=== PATIENT | male | born 1945 | race Caucasian/White ===

== ENCOUNTER 2023-01-23 16:43 | Observation (INO) | payer MEDICARE, OTHER ==
[~2023-01-23] VITALS: Ht 180.3 cm; Wt 86.0 kg
--- OUTSIDE RECORDS SUMMARY | ~2023-01-23 | XMS | Continuity of Care Document ---
Demographics + + + | Address | [address] | | | [place] [address] | + + + | Preferred Language | Unknown | + + + | Marital Status | | + + + | Muslim Affiliation | Unknown | + + + | Race | White | + + + | Ethnic Group | Unknown | + + + Author + + + | Author | [facility] | + + + | Organization | [facility] | + + + | Address | [address] | | | [place] [address] | + + + | Phone | | + + + Care Team Providers + + + + | Care Seafood Preparer Name | Role | Phone | + + + + Unavailable | Unavailable | + + + + Allergies No information. Encounters No information. Functional Status No information. Immunizations No information. Medications No information. Problems + + + + | date | description | facility | + + + + | 2022-11-16 09:08 | CHEST PAIN, UNSPECIFIED | [facility] | + + + + Procedures No information. Results/Labs No information. Social History No information. Vital Signs No information."
--- OUTSIDE RECORDS SUMMARY | ~2023-01-23 | XMS | Continuity of Care Document ---
Demographics + + + | Address | [address] | | | [place] [address] | + + + | Preferred Language | Unknown | + + + | Marital Status | | + + + | Protestant Affiliation | Unknown | + + + | Race | White | + + + | Ethnic Group | Unknown | + + + Author + + + | Author | [facility] | + + + | Organization | [facility] | + + + | Address | [address] | | | [place] [address] | + + + | Phone | | + + + Care Team Providers + + + + | Care Post Acute Care Nurse Practitioner Name | Role | Phone | + [...]
--- OUTSIDE RECORDS SUMMARY | ~2023-01-23 | XMS | Continuity of Care Document ---
Demographics + + + | Address | [address] | | | [place] [address] | + + + | Preferred Language | Unknown | + + + | Marital Status | | + + + | Caodaism Affiliation | Unknown | + + + | Race | White | + + + | Ethnic Group | Unknown | + + + Author + + + | Author | [facility] | + + + | Organization | [facility] | + + + | Address | [address] | | | [place] [address] | + + + | Phone | | + + + Care Team Providers + + + + | Care Terrazzo Polisher Name | Role | Phone | + [...]
[2023-01-23] MEDS ORDERED: ENALAPRIL MALEA20 MG PO (17:03)
[2023-01-23] MEDS ORDERED: FENOFIBRATE160 MG PO (17:03)
[2023-01-23] MEDS ORDERED: AMLODIPINE BESYL5 MG PO (17:03)
[2023-01-23] MEDS ORDERED: ELIQUIS5 MG PO (17:03)
[2023-01-23] MEDS ORDERED: GLIPIZIDE ER10 MG PO (17:04)
[2023-01-23] MEDS ORDERED: METFORMIN HCL1000 MG PO (17:04)
[2023-01-23] MEDS ORDERED: OZEMPIC1 MG/0.71 SQ (17:04)
[2023-01-23] MEDS ORDERED: LEVOTHYROXINE50 MCG PO (17:04)
[2023-01-23 17:15] LABS: BASOPHILS 0.5 % (0-2); EOSINOPHILS 0.1 % (0-6); HEMATOCRIT 38.6 % (35.0-50.0); HEMOGLOBIN 12.7 g/dL (12.0-18.0); LYMPHOCYTES 9.7 % (24-44); MCH 28.5 (27-36); MCV 86.2 fl (81-99); MONOCYTES 5.3 % (0-12); NEUTROPHILS 84.4 % (39-80); PLATELET COUNT 149 K/uL (140-440); RBC 4.48 M/ul (4.3-5.7); RDW 14.2 (10.5-15.0)
[2023-01-23 17:38] LABS: ALBUMIN 3.9 g/dL (3.4-5.0); ALBUMIN/GLOBULIN RATIO 1.08 (1.1-2.4); ANION GAP 17.2 (7-21); BILIRUBIN, TOTAL 0.9 ng/dL (0.2-1.0); BUN/CREATININE RATIO 16.39 (6.0-28.6); CALCIUM 9.9 mg/dL (8.5-10.1); CREATININE, SERUM 1.22 mg/dL (0.70-1.30); MAGNESIUM 1.5 mg/dL (1.8-2.4); POTASSIUM 4.2 mmol/L (3.5-5.1); PROTEIN, TOTAL 7.5 g/dL (6.4-8.2)
[2023-01-23 17:39] LABS: LACTIC ACID, BLOOD 3.1 mmol/L (0.4-2.0)
[2023-01-23 17:53] LABS: BILIRUBIN, URINE NEGATIVE (negative); BLOOD/HGB, URINE NEGATIVE (Negative); KETONE, URINE NEGATIVE (Negative); LEUK ESTERASE, URINE NEGATIVE (negative); NITRITE, URINE NEGATIVE (negative)
[2023-01-23 19:04] LABS: INFLUENZA B NAA NEGATIVE (NEGATIVE); RESPIRATORY SYNCYTIAL VIR NAA NEGATIVE (NEGATIVE)
[2023-01-23 20:47] VITALS: BP 108/74
--- NOTE | 2023-01-23 21:00 | NUR ---
picked up pt from ED, family with pt. Assesed and settled in bed.
--- NOTE | 2023-01-23 21:29 | NUR ---
Notified Dr. Russell regarding pt elevated Temp and lactic acid. Got orders for repeat lactic.
[2023-01-23 23:52] VITALS: BP 127/65
--- NOTE | 2023-01-24 | NUR ---
notified DR. Russell regarding elevated lactic 3.3. Got orders for 1 Liter bolus. Pt has no complains or distress.
[2023-01-24 01:25] VITALS: BP 114/50
[2023-01-24 05:50] LABS: BASOPHILS 0.2 % (0-2); HEMATOCRIT 34.3 % (35.0-50.0); HEMOGLOBIN 11.4 g/dL (12.0-18.0); LYMPHOCYTES 7.9 % (24-44); MCHC 33.2 g/dl (30-36); MCV 87.2 fl (81-99); MONOCYTES 5.9 % (0-12); PLATELET COUNT 107 K/uL (140-440); RBC 3.94 M/ul (4.3-5.7)
[2023-01-24 05:56] VITALS: BP 119/56
[2023-01-24 06:06] LABS: ALBUMIN/GLOBULIN RATIO 0.94 (1.1-2.4); ANION GAP 10.6 (7-21); BILIRUBIN, TOTAL 0.7 ng/dL (0.2-1.0); BUN/CREATININE RATIO 16.51 (6.0-28.6); CALCIUM 8.8 mg/dL (8.5-10.1); CREATININE, SERUM 1.09 mg/dL (0.70-1.30); MAGNESIUM 1.9 mg/dL (1.8-2.4); PHOSPHORUS, INORGANIC 2.9 mg/dL (2.5-4.9); POTASSIUM 3.6 mmol/L (3.5-5.1); PROTEIN, TOTAL 6.2 g/dL (6.4-8.2)
--- NOTE | 2023-01-24 06:17 | NUR ---
Pt slept well overnight. Lactic improved. Voiding adequetely. Feels better however he has fear of drinking water due to vomiting yesterday at home.
--- NOTE | 2023-01-24 07:17 | NUR ---
REPORT RECEIVED FROM SAMIA MURRAY. PT AWAKE AND ALERT, CONTRIBUTES TO REPORT. PT REPORTS 0/10 PAIN AND DENIES NAUSEA AT THIS TIME. NEW IV FLUIDS HUNG. PT DENIES ADDITIONAL REQUESTS OR COMPLAINTS. CALL LIGHT WITHIN REACH. BED RAILS UP. BED ALARM ON.
--- NOTE | 2023-01-24 07:35 | NUR ---
GENERAL ADMINISTRATOR REPORTS PT BEDSIDE BS 59, PT GIVEN 4OZ APPLE JUICE, CRACKERS AND PEANUT BUTTER. PT SITTING UP IN BED, ALERT AND ORIENTED, ASYMPTOMATIC AT THIS TIME. WILL RECHECK IN 15 MINUTES PER PROTOCOL.
--- NOTE | 2023-01-24 07:53 | NUR ---
REPEAT BEDSIDE BS 67, PT CONTINUES TO BE ASYMPTOMATIC. GIVEN CLEAR ENSURE AND GRANOLA BAR. WILL RECHECK PER PROTOCOL.
--- NOTE | 2023-01-24 08:14 | NUR ---
BEDSIDE BS 95. WILL RECHECK PER PROTOCOL UNTIL GREATER THAN 100.
--- NOTE | 2023-01-24 08:32 | NUR ---
BEDSIDE BS 123
--- NOTE | 2023-01-24 08:42 | NUR ---
MORNING ASSESSMENT AND MEDICAITON DUE. PT RESTING IN BED EATING BREAKFAST. PT DECLINES TIME UP TO CHAIR. PT DENIES PAIN AND NAUSEA. PT ALERT AND OREINTED TO ALL. PT TOLERATING REGULAR DIET AT THIS TIME WITH NO NASUEA SEEN. PT DENIES ABDOMINAL OR FLANK PAIN. PT ALERT AND OREITNED TO ALL. LUNG SOUNDS CLEAR. HEART TONES REGULAR. ABDOMEN SOFT AND NON TENDER. WOUDN TO LATERAL LEFT FOOT HAS ALLEVYN DRESSING IN PLACE. DIME SIZE RED DRAINAGE SEEN ON DRESSING. DRESSING LEFT IN PLACE AT THIS TIME. MEDICATIONS GIVEN. PTS AT BEDSIDE, UPDATED ON PLAN OF CARE AND STATES HER QUESTIONS HAVE BEEN ANSWERED. NO ADDITIONAL REQUESTS OR COMPLAINTS AT THIS TIME. CALL LIGHT WITHIN REACH.B ED RAILS UP.
[2023-01-24] MEDS ORDERED: HYDROCHLOROTHIA25 MG PO (08:56)
[2023-01-24] MEDS ORDERED: LATANOPROST2.5 ML OU (08:59)
[2023-01-24] MEDS ORDERED: LANTUS SOL100 UNIT/1 SUB-Q (09:00)
[2023-01-24] MEDS ORDERED: ATORVASTATIN CA40 MG PO (09:00)
[2023-01-24 09:39] VITALS: BP 116/53
--- NOTE | 2023-01-24 09:39 | NUR ---
PT RESTING IN BED. VITALS AND IS AND OS COMPLETE. PT DENIES RESTROOM NEEDS. ICE WATER REFILLED. NO NEEDS. CALL LIGHT WITHIN REACH
[2023-01-24] MEDS ORDERED: ONE DAILY MULT PO (09:50)
[2023-01-24] MEDS ORDERED: FISH OIL 1,0001 EAC6 PO (09:50)
[2023-01-24] MEDS ORDERED: TIMOLOL MALEATE5 M2 OU (09:56)
--- NOTE | 2023-01-24 09:56 | NUR ---
DR FOX TO BEDSIDE TO ROUND ON PT. PT UPDATED ON PLAN OF CARE AND STATES HIS QUESTIONS HAVE BEEN ANSWERED. PT DENIES PAIN AND NAUSEA. QUESTIONS ASKED AND ANSWERED. PT DENIES ADDITIONAL REQUESTS OR COMPLAINTS. CALL LIGHT WITHIN REACH. BED RAILS UP.
--- NOTE | 2023-01-24 09:57 | NUR ---
MED REC COMPLETE
--- NOTE | 2023-01-24 10:20 | NUR ---
Spoke with pt and his . He states they live in [place] in a 1 story home with 2 steps. He denies issues getting in or out of his home. He drives, corrects him and states he was not able to drive yesterday.Pt does not use any DME. He states he is active. He sees Dr. Nieves for a foot wound. Pt state he he is active and denies needs. Pt plans on dc to home when cleared medically. Denies financial issues.
--- NOTE | 2023-01-24 10:35 | NUR ---
PHYSICAL THERAPIST TO BEDSIDE TO WORK WITH PT. IV SALINE LOCKED TO ALLOW FOR EASE OF MOVEMENT/AMBULATION IN THE [place]. ALCOHOL CAP APPLIED. PT DENIES PAIN AND NAUSEA. PTS AT BEDSIDE AND TALKING WITH CASE MANAGEMENT. NO ADDITIONAL NEEDS. CALL LIGHT WITHIN REACH.
--- NOTE | 2023-01-24 11:08 | NUR ---
PT FINISHED WORKING WITH PHYSICAL THERAPY. IV ASSESSED, WNL. IV FLUIDS RESUMED. PHYSCIAL THERAPIST STATES PT OK TO BE INDEPENDANT IN THE ROOM AND IS STEADY ON HIS FEET. PT IS USING WAKER FOR BLANCE RELATED TO LEFT FOOT WOUND AND STILL HAS IV POLE. PT ADVISED THAT HE WILL REMAIN BMAT LEVEL 3 FOR LINE AND TUBE MANAGEMENT. PT UP TO CHAIR. VISITING WITH . NO ADDITIONAL REQUESTS OR COMPLAINTS. CALL LIGHT WITHIN REACH.
--- NOTE | 2023-01-24 11:42 | NUR ---
PTS TO NURSES STATION REPORTING PT HAS FILLED URINAL. THIS RN TO ROOM URINAL EMPTIED OF 575ML OF DARK YELLOW URINE. PO FLUIDS ENCORUAGED. PT REMAINS UP TO CHAIR. PT DENIES PAIN AND NAUSEA. FAMILY FRIEND TO ROOM TO VISIT. NO ADDITONAL REQUESTS OR COMPLAINTS. CALL LIGHT WITHIN REACH.
--- NOTE | 2023-01-24 12:19 | NUR ---
LUNCH DELIVERED TO PT. INSULIN GIVEN. PT REMAINS UP TO CHAIR. VISITING WITH FAMILY AND FRIENDS. PT DENIES REQUESTS OR COMPLAINTS. CALL LIGHT WITHIN REACH.
[2023-01-24 13:45] VITALS: BP 120/58
--- NOTE | 2023-01-24 13:47 | NUR ---
AFTERNOON ASSESSMENT DUE. PT REMAINS UP TO CHAIR, RESTING WITH EYES CLOSED AND HEAD FORWARD. PT AWAKENS TO VOICE AND REQUESTS TO GO BACK TO BED FOR A NAP. STAND BY ASSIST WITH FWW BACK TO BED. PT POSITIONS SELF IN BED WITH NO ASSISTANCE NEEDED. PT REMAINS ALERT AND ORIENTED TO ALL. LUNG SOUNDS CLEAR. HEAR TONES REGULAR. ABDOMEM SOFT AND NON TENDER, BOWEL TONES ACTIVE. DRESSING TO LATERAL LEFT FOOT REMAINS INTACT WITH DIME SIZE RED DRAINGE PRESENET, MINIMALLY MORE THAN THIS MORNING. DRESSING LEFT IN PLACE. VITAL SIGNS STABLE. PT DENIES ADDITIONAL REQUESTS OR COMPLAINTS. ICE WATER REFILLED. PT RESTING WITH EYES CLOSED WITH HEAD OF BED ELEVATED TO 25 DEGREES. CALL LIGHT WITHIN REACH. BED RAILS UP.
--- NOTE | 2023-01-24 14:14 | NUR ---
THIS RN TO ROOM TOCHECK ON PT. PT RESTING IN BED WITH EYES CLOSED. RESPRIATIONS EVEN AND UNLABORED. BED RAILS UP. CALL LIGHT WITHIN REACH. PT ALLOWED TO REST.
--- NOTE | 2023-01-24 14:16 | NUR ---
PT HERE FOR SIRS. PT UP TO CHAIR, TO AMBULATE, AND WITH PHYSICAL THERAPY THIS SHIFT. AMBUALTES WITH STAND BY ASSIST AND FWW. PT TOELRATING 60G CARB DIET WITH GOOD APPITITE, DENIES NAUSEA THSI SHIFT. PT DENIES PAIN THIS SHIFT. ALERT AND OREINTED. LUNG SOUNDS CLEAR. HEART TONES REGULAR. PT AFBRIAL SO FAR THIS SHIFT. IV ABX GIVEN. BLOOD SUGARS WITH MEALS AND HS. PT HYPOGLYCEMIC THIS MORNING. SLIDING SCALE INSULIN NEEDED DURING OTHER MEALS. DRESSING TO LEFT LATERAL FOOD REMAINS INTACT WITH DIME SIZE DRAINAGE. NEUROPATHY UNCHNAGED. PT VOIDING QUANITTY SUFFICIENT. PT USES CALL LIGHT AND MAKES NEEDS KNOWN.
--- NOTE | 2023-01-24 14:42 | NUR ---
THIS RN TO ROOM TOCHECK ON PT. PT CONTINUES RESTING IN BED WITH EYES CLOSED. RESPRIATIONS EVEN AND UNLABORED. BED RAILS UP. CALL LIGHT WITHIN REACH. PT ALLOWED TO REST.
--- NOTE | 2023-01-24 14:50 | NUR ---
IN BED. APPEARED TO BE OVERALL IN GOOD SPIRITS. LEFT GUIDEPOST AND CARD. CONSENTED TO PRAYER. PRAYED FOR ONGOING HEALING AND ABIDING PEACE.
--- NOTE | 2023-01-24 15:32 | NUR ---
PUMP ALARMING, IV FLUID BAG COMPLETE. NEW BAG HUNG. IV ASSESSED, WNL. NO S/S OF PHLEBITIS PRESENT. PT RESTING IN BED, DENIES PAIN AND NAUSEA. NO ADDITIONAL REQUESTS OR COMPLAINTS. CALL LIGHT WITHIN REACH.
--- NOTE | 2023-01-24 16:32 | NUR ---
THIS RN TO ROOM TO CHECK ON PT. PT RESTING IN BED, VISITING WITH FAMILY. PT DENIES PAIN AND NAUSEA. PTS REPORTS SHE FORGOT TO BRING IN PTS FOOT PAD. QUESTIONS ASKED AND ANSWERED. PT DENIES ADDITIONAL REQUESTS OR COMPLAINTS. CALL LIGHT WITHIN REACH. BED RAILS UP.
[2023-01-24 17:12] VITALS: BP 143/60
--- NOTE | 2023-01-24 17:23 | NUR ---
DINNER DELIVERED TO PT. PT CONTINUES RESTING IN BED. PT DECLINES TIME UP TO CHAIR. NO INSULIN NEEDED. PT DENIES PAIN AND NAUSEA AND REPORTS GOOD APPITITE. NO ADDITIONAL REQUESTS OR COMPLAINTS. CALL LIGHT WITHIN REACH. BED RAILS UP.
--- NOTE | 2023-01-24 18:38 | NUR ---
THIS RN TO ROOM TO CHECK ON PT. PT CONTINUES RESTING IN BED, DECLINES TIME UP TO CHAIR. FAMILY AND FRIENDS AT BEDSIDE. PT AT 100% OF DINNER. PT DENIES PAIN AND NAUSEA. NO REQUESTS OR COMPLAINTS AT THIS TIME. CALL LIGHT WITHIN REACH. BED RAILS UP.
[2023-01-24 21:19] VITALS: BP 152/69
--- NOTE | 2023-01-24 21:20 | NUR ---
PT assesed, no complains of nausea or pain. Pt voiding adequetly. wound assesed.
[2023-01-25 05:25] VITALS: BP 163/68
--- NOTE | 2023-01-25 05:39 | NUR ---
Pt had a good night, woke up multiple times to void. NO pain, or nausea. left foot wound covered. Tolerating liquids and diet.
[2023-01-25 06:11] LABS: BASOPHILS 0.5 % (0-2); EOSINOPHILS 1.4 % (0-6); HEMATOCRIT 33.8 % (35.0-50.0); HEMOGLOBIN 11.4 g/dL (12.0-18.0); LYMPHOCYTES 17.6 % (24-44); MCH 28.8 (27-36); MCHC 33.6 g/dl (30-36); MCV 85.5 fl (81-99); MONOCYTES 6.5 % (0-12); PLATELET COUNT 104 K/uL (140-440); RBC 3.96 M/ul (4.3-5.7); RDW 13.8 (10.5-15.0)
[2023-01-25 06:28] LABS: ALBUMIN 2.9 g/dL (3.4-5.0); ALBUMIN/GLOBULIN RATIO 0.88 (1.1-2.4); ANION GAP 8.9 (7-21); BILIRUBIN, TOTAL 0.7 ng/dL (0.2-1.0); BUN/CREATININE RATIO 12.17 (6.0-28.6); CALCIUM 9.1 mg/dL (8.5-10.1); CREATININE, SERUM 1.15 mg/dL (0.70-1.30); MAGNESIUM 1.7 mg/dL (1.8-2.4); POTASSIUM 3.9 mmol/L (3.5-5.1); PROTEIN, TOTAL 6.2 g/dL (6.4-8.2)
--- NOTE | 2023-01-25 07:28 | NUR ---
REPORT RECEIVED FROM TREVOR GRACIA. PT RESTING IN BED, AWAKE AND ALERT. IV FLUID BAG EMPTY. PT REQUESTS TO HAVE FREEDOM TO MOVE ARROUND ROOM AND AMBULATE. PT VOIDING LARGE FREQUENT AMOUNTS. IV FLUSHED AND SALINE LOCKED TO ALLOW FOR ACTIVITY. ALCOHOL CAP APPLIED. PT DENIES PAIN AND NAUSEA. NO ADDITIONAL REQUESTS OR COMPLAINTS. CALL LIGHT WITHIN REACH. BED RAILS UP.
--- NOTE | 2023-01-25 09:21 | NUR ---
MORNING ASSESSMENT AND MEDICATION DUE. PT RESTING INBED. PT INDEPENDANT IN ROOM, UP TO RESTROOM, STEADY ON FEET, NO ASSISTANCE NEEDED. PT USES HEEL ONLY WALKING ON LEFT FOOT TO PROMOTE WOUND HEALING. PT ALERT AND OREINTED TO ALL. LUNG SOUNDS CLEAR. HEART TONES REGULAR. PT DENIES ANY PAIN OR NAUSEA. ABDOMEN SOFT AND NON TENDER. DRESSING TO LATTERAL PAD OF REMAINS INTACT WITH C SHAPE FOOT TO RELEAVE PRESSURE OFF OF WOUND. ALLEVYN REMAINS INTACT WITH DIME SIZE RED DRAINAGE. NO NEW DRAINAGE SEEN SINCE YESTERDAY'S ASSESSMENT. ALLEVYN LEFT IN PLACE. PT REPORTS HE HAS A FOLLOW UP WIHT DR COTTRELL NEXT SATURDAY. PT ENCORUAGED TO KEEP THIS APPOINTMENT. VITAL SIGNS STABLE. NO ADDITIONAL REQUESTS OR COMPLAINTS. CALL LIGHT WITHIN RECH. BED RAILS UP. FAMILY AT BEDSIDE AND UPDATED ON PLAN OF CARE.
--- NOTE | 2023-01-25 09:30 | NUR ---
Spoke with Lobito. He states he is much better today and plans on going home. He would like OP therapy and states he has gone there in the past. Let him know I will send his chart with orders when Dr Russell has completed. Pt denies further needs and plans on dc to home today with .
[2023-01-25 09:31] VITALS: BP 151/61
--- NOTE | 2023-01-25 10:39 | NUR ---
THIS RN TO ROOM TO CHECK ON PT. PT RESTING IN BED, IV MAGNESIUM COMPLETE. LINE FLUSHED AND SALINE LOCKED TO ALLOW FREEDOM FOR PT MOVEMENT. PT REPORTS HE IS ANTICIPATING DISCHARGE SOON. PT DENIES PAIN AND NAUSE. FAMILY AT BEDSIDE. NO ADDITIONAL REQUESTS OR COMPLAINTS. CALL LIGHT WITHIN REACH. BED RAILS UP.
--- NOTE | 2023-01-25 11:30 | NUR ---
THIS RN TO ROOM TO CHECK ON PT. PT WATCHING BASEBALL GAME ON TV. PT DENIES PAIN OR NAUSEA. NO REQEUSTS OR COMPLAINTS OTHER THAN "TO GO HOME." PTS AT BEDSIDE. CALL LIGHT WITHIN RECH. BED RAILS UP.
--- NOTE | 2023-01-25 12:11 | NUR ---
MEDICATION DUE. LUNCH DELIVERED. MEDICATION GIVEN. PT CONTINUES WATCHING BASEBALL GAME. PT DENIES PAIN AND NAUSEA. PT EATING LUNCH. NO ADDITIONAL REQUESTS OR COMPLAINTS. CALL LIGHT WITHIN REACH. BED RAILS UP.
[2023-01-25 14:22] VITALS: BP 157/71
--- NOTE | 2023-01-25 14:25 | NUR ---
TOOK BOTH IVS OUT OF PATIENT NURSE ASKED ME TO.
--- NOTE | 2023-01-25 14:27 | NUR ---
THIS RN TO ROOM TO CHECK ON PT. PT READY FOR DISCHAGE. IVs DC'D PER PROTOCOL BY ESTRELLITA NICHOLE. PT DRESSED SELF, NO ASSISTANCE NEEDED. PT AWAITING DISCHRAGE PAPERWORK. UPDATED ON DISCHRAGE INSTRUCTIONS AND PLAN FOR DISCHRAGE. NO ADDITIONAL REQUESTS OR COMPLAINTS. CALL LIGHT WITHIN REACH. BED RAILS UP.
[2023-01-25] MEDS ORDERED: CEFPODOXIME PR200 MG PO (14:35)
--- NOTE | 2023-01-25 14:46 | NUR ---
Pt was discussed in 8:30 meeting. will write orders for OP PT. Pt in agreement as he feels he is week. Face sheet, order, H&P, DC summary, and PT note faxed to OP. Pt notified they will call him next week to set a schedule. Pt states he is aware as he has had OP therapy in the past.
== END 2023-01-25 15:00 | disposition home or self-care (01) ==
LOC: ED 16:43 → MS 16:47
PROVIDERS: Emergency Medicine; ADMIT Family Medicine; ATTEND Family Medicine
DX: R11.2 Nausea with vomiting, unspecified (principal); R65.10 Systemic inflammatory response syndrome (SIRS) of non-infectious origin without acute organ dysfunction; E83.42 Hypomagnesemia; E11.9 Type 2 diabetes mellitus without complications; E03.9 Hypothyroidism, unspecified; I48.91 Unspecified atrial fibrillation; Z20.822 Contact with and (suspected) exposure to COVID-19
CPT/HCPCS: 36415; 71045; 71260; 74177; 76705; 80053; 81003; 83605; 83690; 83735; 84100; 85025; 87040; 87077; 87186; 87502; 96366; 96367; 96375; 97161; 99285-25; A9270; G0378; J0696; J1815; J2405; J3475; J7030; Q9967; U0002

== ENCOUNTER 2023-02-15 11:55 | Emergency (ER) | payer MEDICARE, OTHER ==
[~2023-02-15] VITALS: Ht 180.3 cm; Wt 83.4 kg
--- OUTSIDE RECORDS SUMMARY | ~2023-02-15 | XMS | Continuity of Care Document ---
Demographics + + + | Address | [address] | | | [place] [address] | + + + | Preferred Language | Unknown | + + + | Marital Status | | + + + | Mosque Affiliation | Unknown | + + + | Race | White | + + + | Ethnic Group | Not or | + + + Author + + + | Author | [facility] | + + + | Organization | [facility] | + + + | Address | [address] | | | [place] [address] | + + + | Phone | | + + + Care Team Providers + + + + | Care Kennel Supervisor Name | Role | Phone | + + + + Unavailable | Unavailable | + + + + Unavailable | Unavailable | + + + + Unavailable | Unavailable | + + + + Allergies No information. Encounters No information. Functional Status No information. Immunizations No information. Medications + + + + | date | description | facility | + + + + | 2023-01-25 00:00 | APIXABAN | [facility] | + + + + | 2023-01-25 00:00 | Timolol Maleate | [facility] | + + + + | 2023-01-25 00:00 | AMLODIPINE BESYLATE | [facility] | + + + + | 2023-01-25 00:00 | Semaglutide | [facility] | + + + + | 2023-01-25 00:00 | CEFPODOXIME PROXETIL | [facility] | + + + + | 2023-01-25 00:00 | HYDROCHLOROTHIAZIDE | [facility] | + + + + | 2023-01-25 00:00 | LATANOPROST | [facility] | + + + + | 2023-01-25 00:00 | GLIPIZIDE | [facility] | + + + + | 2023-01-25 00:00 | FENOFIBRATE | [facility] | + + + + | 2023-01-25 00:00 | ATORVASTATIN CALCIUM | [facility] | + + + + | 2023-01-25 00:00 | INSULIN | [facility] | | | [facility] | | + + + + | 2023-01-25 00:00 | ENALAPRIL MALEATE | [facility] | + + + + | 2023-01-25 00:00 | METFORMIN HCL | [facility] | + + + + | 2023-01-25 00:00 | LEVOTHYROXINE SODIUM | [facility] | + + + + Problems + + + + | date | description | facility | + + + + | 2022-11-16 09:08 | CHEST PAIN, UNSPECIFIED | [facility] | + + + + | 2023-01-23 00:00 | Sepsis | [facility] | + + + + | 2023-01-23 00:00 | Cholelithiasis | [facility] | + + + + | 2023-01-23 16:47 | HYPOTHYROIDISM, | [facility] | | | UNSPECIFIED | | + + + + | 2023-01-23 16:47 | 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 Results/Labs +--------+--------+ +---------+--------+---------+ | test | date | facility | value | unit | notes | +--------+--------+ +---------+--------+---------+ + + | Result panel 1 | + + + + + +-------+ + + | | 2023-01-23 | [facility] | [facility] | (missing) | (missing) | | (unavailable | [facility]:07 [facility] | | | + + + +-------+ + + + + | Result panel 2 | + + + + + + + + + | | 2023-01-23 | [facility] | | (missing) | (missing) | | (unavailable | 17:10:07 [facility] | S PYOGENES | | | + + + + + + + + + | Result panel 3 | + + + + + + + + + | | 2023-01-23 | [facility] | YELLOW | (missing) | (missing) | | (unavailable | 17:48:07 [facility] | | | | + + + + + + + + + | Result panel 4 | + + + + + +---------+ + + | | 2023-01-23 | [facility] | CLEAR | (missing) | (missing) | | (unavailable | [facility]:48:07 [facility] | | | | + + + +---------+ + + + + | Result panel 5 | + + + + + + + + + | | 2023-01-23 | [facility] | MODERATE | (missing) | (missing) | | (unavailable | [facility]:48:07 [facility] | | | | + + + + + + + + + | Result panel 6 | + + + + + + + + + | | 2023-01-23 | [facility] | NEGATIVE | (missing) | (missing) | | (unavailable | [facility]48:07 [facility] | | | | + + + + + + + + + | Result panel 7 | + + + + + + + + + | | 2023-01-23 | [facility] | NEGATIVE | (missing) | (missing) | | (unavailable | [facility]48:07 [facility] | | | | + + + + + + + + + | Result panel 8 | + + + + + +---------+ + + | | 2023-01-23 | [facility] | 1.020 | (missing) | (missing) | | (unavailable | [facility]48:07 [facility] | | | | + + + +---------+ + + + + | Result panel 9 | + + + + + + + + + | | 2023-01-23 | [facility] | NEGATIVE | (missing) | (missing) | | (unavailable | [facility]48:07 [facility] | | | | + + + + + + + + + | Result panel 10 | + + + + + +-------+ + + | | 2023-01-23 | [facility] | 8.0 | (missing) | (missing) | | (unavailable | [facility]48:07 [facility] | | | | + + + +-------+ + + + + | Result panel 11 | + + + + + + + + + | | 2023-01-23 | [facility] | NEGATIVE | (missing) | (missing) | | (unavailable | [facility]48:07 [facility] | | | | + + + + + + + + + | Result panel 12 | + + + + + + + + + | | 2023-01-23 | [facility] | NORMAL | (missing) | (missing) | | (unavailable | [facility]48:07 [facility] | | | | + + + + + + + + + | Result panel 13 | + + + + + + + + + | | 2023-01-23 | [facility] | NEGATIVE | (missing) | (missing) | | (unavailable | [facility]48:07 [facility] | | | | + + + + + + + + + | Result panel 14 | + + + + + + + + + | | 2023-01-23 | [facility] | NEGATIVE | (missing) | (missing) | | (unavailable | [facility]48:07 [facility] | | | | + + + + + + + + + | Result panel 15 | + + + + + + + + + | | 2023-01-23 | [facility] | NEGATIVE | (missing) | (missing) | | (unavailable | 18[facility]20:07 [facility] | | | | + + + + + + + + + | Result panel 16 | + + + + + + + + + | | 2023-01-23 | [facility] | NEGATIVE | (missing) | (missing) | | (unavailable | 18:20:07 [facility] | | | | + + + + + + + + + | Result panel 17 | + + + + + + + + + | | 2023-01-23 | [facility] | NEGATIVE | (missing) | (missing) | | (unavailable | [facility]:20:07 [facility] | | | | + + + + + + + + + | Result panel 18 | + + + + + + + + + | | 2023-01-23 | [facility] | NEGATIVE | (missing) | (missing) | | (unavailable | 18:20:07 [facility] | | | | + + + + + + + + + | Result panel 19 | + + + + + +-------+---------+ + | | 2023-01-24 | [facility] | 2.9 | mg/dL | (missing) | | (unavailable | 05:37:07 [facility] | | | | + + + +-------+---------+ + + + | Result panel 20 | + + + + + +-------+ + + | | 2023-01-24 | [facility] | 1.0 | (missing) | (missing) | | (unavailable | 05:37:07 [facility] | | | | + + + +-------+ + + + + | Result panel 21 | + + + + + +--------+ + + | | 2023-01-25 | [facility] | 13.8 | (missing) | (missing) | | (unavailable | [facility]55:07 [facility] | | | | + + + +--------+ + + + + | Result panel 22 | + + + + + +-------+ + + | | 2023-01-25 | [facility] | 104 | (missing) | (missing) | | (unavailable | [facility]55:07 [facility] | | | | + + + +-------+ + + + + | Result panel 23 | + + + + + +--------+ + + | | 2023-01-25 | [facility] | 74.0 | (missing) | (missing) | | (unavailable | [facility]55:07 [facility] | | | | + + + +--------+ + + + + | Result panel 24 | + + + + + +--------+ + + | | 2023-01-25 | [facility] | 17.6 | (missing) | (missing) | | (unavailable | [facility]55:07 [facility] | | | | + + + +--------+ + + + + | Result panel 25 | + + + + + +-------+ + + | | 2023-01-25 | [facility] | 6.5 | (missing) | (missing) | | (unavailable | [facility]55:07 [facility] | | | | + + + +-------+ + + + + | Result panel 26 | + + + + + +-------+ + + | | 2023-01-25 | [facility] | 1.4 | (missing) | (missing) | | (unavailable | [facility]55:07 [facility] | | | | + + + +-------+ + + + + | Result panel 27 | + + + + + +-------+ + + | | 2023-01-25 | [facility] | 0.5 | (missing) | (missing) | | (unavailable | [facility]55:07 [facility] | | | | + + + +-------+ + + + + | Result panel 28 | + + + + + +-------+---------+ + | | 2023-01-25 | [facility] | 112 | mg/dL | (missing) | | (unavailable | 05[facility]55:07 [facility] | | | | + + + +-------+---------+ + + + | Result panel 29 | + + + + + +------+---------+ + | | 2023-01-25 | [facility] | 14 | mg/dL | (missing) | | (unavailable | [facility]55:07 [facility] | | | | + + + +------+---------+ + + + | Result panel 30 | + + + + + +--------+---------+ + | | 2023-01-25 | [facility] | 1.15 | mg/dL | (missing) | | (unavailable | [facility]55:07 [facility] | | | | + + + +--------+---------+ + + + | Result panel 31 | + + + + + +------+ + + | | 2023-01-25 | [facility] | 65 | (missing) | (missing) | | (unavailable | [facility]55:07 [facility] | | | | + + + +------+ + + + + | Result panel 32 | + + + + + +---------+ + + | | 2023-01-25 | [facility] | 12.17 | (missing) | (missing) | | (unavailable | [facility]55:07 [facility] | | | | + + + +---------+ + + + + | Result panel 33 | + + + + + +-------+ + + | | 2023-01-25 | [facility] | 141 | (missing) | (missing) | | (unavailable | [facility]55:07 [facility] | | | | + + + +-------+ + + + + | Result panel 34 | + + + + + +-------+ + + | | 2023-01-25 | [facility] | 3.9 | (missing) | (missing) | | (unavailable | [facility]55:07 [facility] | | | | + + + +-------+ + + + + | Result panel 35 | + + + + + +-------+ + + | | 2023-01-25 | [facility] | 107 | (missing) | (missing) | | (unavailable | [facility]55:07 [facility] | | | | + + + +-------+ + + + + | Result panel 36 | + + + + + +------+ + + | | 2023-01-25 | [facility] | 29 | (missing) | (missing) | | (unavailable | [facility]55:07 [facility] | | | | + + + +------+ + + + + | Result panel 37 | + + + + + +-------+ + + | | 2023-01-25 | [facility] | 8.9 | (missing) | (missing) | | (unavailable | [facility]55:07 [facility] | | | | + + + +-------+ + + + + | Result panel 38 | + + + + + +-------+---------+ + | | 2023-01-25 | [facility] | 9.1 | mg/dL | (missing) | | (unavailable | [facility]55:07 [facility] | | | | + + + +-------+---------+ + + + | Result panel 39 | + + + + + +-------+---------+ + | | 2023-01-25 | [facility] | 1.7 | mg/dL | (missing) | | (unavailable | [facility]55:07 [facility] | | | | + + + +-------+---------+ + + + | Result panel 40 | + + + + + +-------+ + + | | 2023-01-25 | [facility] | 4.1 | (missing) | (missing) | | (unavailable | [facility]55:07 [facility] | | | | + + + +-------+ + + + + | Result panel 41 | + + + + + +-------+ + + | | 2023-01-25 | [facility] | 6.2 | (missing) | (missing) | | (unavailable | [facility]55:07 [facility] | | | | + + + +-------+ + + + + | Result panel 42 | + + + + + +-------+ + + | | 2023-01-25 | [facility] | 2.9 | (missing) | (missing) | | (unavailable | [facility]55:07 [facility] | | | | + + + +-------+ + + + + | Result panel 43 | + + + + + +-------+ + + | | 2023-01-25 | [facility] | 3.3 | (missing) | (missing) | | (unavailable | [facility]55:07 [facility] | | | | + + + +-------+ + + + + | Result panel 44 | + + + + + +--------+ + + | | 2023-01-25 | [facility] | 0.88 | (missing) | (missing) | | (unavailable | [facility]55:07 [facility] | | | | + + + +--------+ + + + + | Result panel 45 | + + + + + +-------+ + + | | 2023-01-25 | [facility] | 0.7 | (missing) | (missing) | | (unavailable | [facility]55:07 [facility] | | | | + + + +-------+ + + + + | Result panel 46 | + + + + + +------+ + + | | 2023-01-25 | [facility] | 25 | (missing) | (missing) | | (unavailable | [facility]55:07 [facility] | | | | + + + +------+ + + + + | Result panel 47 | + + + + + +------+ + + | | 2023-01-25 | [facility] | 32 | (missing) | (missing) | | (unavailable | [facility]55:07 [facility] | | | | + + + +------+ + + + + | Result panel 48 | + + + + + +------+ + + | | 2023-01-25 | [facility] | 46 | (missing) | (missing) | | (unavailable | [facility]55:07 [facility] | | | | + + + +------+ + + + + | Result panel 49 | + + + + + +--------+ + + | | 2023-01-25 | [facility] | 3.96 | (missing) | (missing) | | (unavailable | [facility]55:07 [facility] | | | | + + + +--------+ + + + + | Result panel 50 | + + + + + +--------+ + + | | 2023-01-25 | [facility] | 11.4 | (missing) | (missing) | | (unavailable | [facility]55:07 [facility] | | | | + + + +--------+ + + + + | Result panel 51 | + + + + + +--------+ + + | | 2023-01-25 | [facility] | 33.8 | (missing) | (missing) | | (unavailable | [facility]55:07 [facility] | | | | + + + +--------+ + + + + | Result panel 52 | + + + + + +--------+ + + | | 2023-01-25 | [facility] | 85.5 | (missing) | (missing) | | (unavailable | [facility]55:07 [facility] | | | | + + + +--------+ + + + + | Result panel 53 | + + + + + +--------+ + + | | 2023-01-25 | [facility] | 28.8 | (missing) | (missing) | | (unavailable | [facility]55[facility]07 [facility] | | | | + + + +--------+ + + + + | Result panel 54 | + + + + + +--------+ + + | | 2023-01-25 | [facility] | 33.6 | (missing) | (missing) | | (unavailable | [facility]55:07 [facility] | | | | + + + +--------+ + + + + | Result panel 55 | + + + + + +-------+ + + | | 2023-01-25 | [facility] | 183 | (missing) | (missing) | | (unavailable | [facility]50:07 [facility] | | | | + + + +-------+ + + Social History + + + + | date | description | facility | + + + + | 2023-01-25 00:00 | Unknown if ever smoked | [facility] | + + + + Vital Signs + + + +---------+ | date | measurement | value | units | + + + +---------+ | 2023-01-23 00:00 | BMI | 26.4 | kg/m2 | + + + +---------+ | 2023-01-23 00:00 | height_metric | 180.34 | cm | + + + +---------+ | 2023-01-23 00:00 | height_standard | 71 | in | + + + +---------+ | 2023-01-23 00:00 | weight_metric | 86 | kg | + + + +---------+ | 2023-01-23 00:00 | weight_standard | 189.6 | lb | + + + +---------+ | 2023-01-25 00:00 | BP_diastolic | 71 | mmHg | + + + +---------+ | 2023-01-25 00:00 | BP_systolic | 157 | mmHg | + + + +---------+ | 2023-01-25 00:00 | heart_rate | 73 | /min | + + + +---------+ | 2023-01-25 00:00 | o2_saturation | 100 | % | + + + +---------+ | 2023-01-25 00:00 | respiration_rate | 20 | /min | + + + +---------+ | 2023-01-25 00:00 | temperature_metric | 36.33 | C | | | | | | + + + +---------+ | 2023-01-25 00:00 | | 97.4 | F | | | temperature_standar | | | | | d | | | + + + +---------+"
--- OUTSIDE RECORDS SUMMARY | ~2023-02-15 | XMS | Continuity of Care Document ---
Demographics + + + | Address | [address] | | | [place] [address] | + + + | Preferred Language | Unknown | + + + | Marital Status | | + + + | Worship Affiliation | Unknown | + + + | Race | White | + + + | Ethnic Group | Not or | + + + Author + + + | Author | [facility] | + + + | Organization | [facility] | + + + | Address | [address] | | | [place] [address] | + + + | Phone | | + + + Care Team Providers + + + + | Care Drier Helper Name | Role | Phone | + [...] + | 2023-01-25 00:00 | APIXABAN | [facility] | + + + + | 2023-01-25 00:00 | Timolol Maleate | [facility] | + + + + | 2023-01-25 00:00 | AMLODIPINE BESYLATE | [facility] | + + + + | 2023-01-25 00:00 | Semaglutide | [facility] | + + + + | 2023-01-25 00:00 | CEFPODOXIME PROXETIL | [facility] | + + + + | 2023-01-25 00:00 | HYDROCHLOROTHIAZIDE | [facility] | + + + + | 2023-01-25 00:00 | LATANOPROST | [facility] | + + + + | 2023-01-25 00:00 | GLIPIZIDE | [facility] | + + + + | 2023-01-25 00:00 | FENOFIBRATE | [facility] | + + + + | 2023-01-25 00:00 | ATORVASTATIN CALCIUM | [facility] | + + + + | 2023-01-25 00:00 | INSULIN | [facility] | | | YOSELIN JANEANLOG | | + + + + | 2023-01-25 00:00 | ENALAPRIL MALEATE | [facility] | + + + + | 2023-01-25 00:00 | METFORMIN HCL | [facility] | + + + + | 2023-01-25 00:00 | LEVOTHYROXINE SODIUM | [facility] | + + + + Problems + + + + | date | description | facility | + + + + | 2022-11-16 09:08 | CHEST PAIN, UNSPECIFIED | [facility] | + + + + | 2023-01-23 00:00 | Sepsis | [facility] | + + + + | 2023-01-23 00:00 | Cholelithiasis | [facility] | + + + + | 2023-01-23 [...] | Unknown if ever smoked | [facility] | + + + + Vital Signs [...]
[~2023-02-15 11:55] MED LIST: AMLODIPINE BESYL5 MG PO; ATORVASTATIN CA40 MG PO; CEFPODOXIME PR200 MG PO; ELIQUIS5 MG PO; ENALAPRIL MALEA20 MG PO; FENOFIBRATE160 MG PO; FISH OIL 1,0001 EAC6 PO; GLIPIZIDE ER10 MG PO; HYDROCHLOROTHIA25 MG PO; LANTUS SOL100 UNIT/1 SUB-Q; LATANOPROST2.5 ML OU; LEVOTHYROXINE50 MCG PO; METFORMIN HCL1000 MG PO; ONE DAILY MULT PO; OZEMPIC1 MG/0.71 SQ; TIMOLOL MALEATE5 M2 OU
--- OUTSIDE RECORDS SUMMARY | 2023-02-15 12:04 | XMS ---
PreManage Notification: BREANA HURLEY Security Cds Sales Advisor Events No recent Security Events currently on file CRITERIA MET - [facility] - 2 Visits in 30 Days CARE PROVIDERS [facility] Current PHONE: Unknown Chanda has no Care Guidelines for this patient. EMarek VISIT COUNT (12 MO.) 2 [facility] TOTAL 2 NOTE: Visits indicate total known visits. ED/UCC VISIT TRACKING (12 MO.) 02/15/2023 11:56 [facility] TYPE: Emergency COMPLAINT: - VOMITING, FEVER, CHILLS 01/23/2023 16:46 [facility] TYPE: Emergency COMPLAINT: - VOMITING INPATIENT VISIT TRACKING (12 MO.) 01/23/2023 16:47 [facility] TYPE: Observation COMPLAINT: - NAUSEA AND VOMITING DIAGNOSES: - Contact with and (suspected) exposure to COVID-19 - Hypomagnesemia - Hypothyroidism, unspecified - Nausea with vomiting, unspecified - Systemic inflammatory response syndrome (SIRS) of non-infectious origin without acute organ dysfunction - Type 2 diabetes mellitus without complications - Unspecified atrial fibrillation [email or web address]
[2023-02-15 12:35] LABS: BASOPHILS 0.2 % (0-2); EOSINOPHILS 0.1 % (0-6); HEMATOCRIT 40.6 % (35.0-50.0); HEMOGLOBIN 13.7 g/dL (12.0-18.0); LYMPHOCYTES 6.4 % (24-44); MCH 28.8 (27-36); MCHC 33.8 g/dl (30-36); MCV 85.3 fl (81-99); MONOCYTES 6.5 % (0-12); NEUTROPHILS 86.8 % (39-80); PLATELET COUNT 124 K/uL (140-440); RBC 4.76 M/ul (4.3-5.7); RDW 14.1 (10.5-15.0)
[2023-02-15 12:44] LABS: ALBUMIN/GLOBULIN RATIO 1.11 (1.1-2.4); ANION GAP 13.3 (7-21); BILIRUBIN, TOTAL 1.4 ng/dL (0.2-1.0); BUN/CREATININE RATIO 14.65 (6.0-28.6); CALCIUM 9.9 mg/dL (8.5-10.1); CREATININE, SERUM 1.16 mg/dL (0.70-1.30); POTASSIUM 4.3 mmol/L (3.5-5.1); PROTEIN, TOTAL 7.6 g/dL (6.4-8.2)
[2023-02-15 13:17] LABS: LACTIC ACID, BLOOD 1.7 mmol/L (0.4-2.0)
[2023-02-15 13:30] LABS: INFLUENZA B NAA NEGATIVE (NEGATIVE); RESPIRATORY SYNCYTIAL VIR NAA NEGATIVE (NEGATIVE)
[2023-02-15 14:52] LABS: BILIRUBIN, URINE NEGATIVE (negative); BLOOD/HGB, URINE NEGATIVE (Negative); KETONE, URINE NEGATIVE (Negative); LEUK ESTERASE, URINE NEGATIVE (negative); NITRITE, URINE NEGATIVE (negative); PH, URINE 6.5 (5-7)
[2023-02-15 14:57] LABS: BACTERIA, URINE NONE SEEN /hpf (negative); CASTS, URINE NONE SEEN \\lpf; COLLECTION TYPE, URINE CLEAN CATCH; CRYSTALS, URINE NONE SEEN (0-1+); EPITHELIAL CELLS, URINE NONE SEEN /lpf (0-1+); RED BLOOD CELLS, URINE 0-1 /hpf (0-5); REFLEX CULTURE, URINE No (No); WHITE BLOOD CELLS, URINE 0-1 /HPF (0-5)
[2023-02-15] MEDS ORDERED: ONDANSETRON ODT8 MG PO (15:05)
[2023-02-15] MEDS ORDERED: DOXYCYCLINE HY100 MG PO (15:05)
[2023-02-15 15:41] VITALS: BP 124/67
--- NOTE | 2023-02-15 19:24 | EKG ---
[facility] [address] [place], [place] [address] Signed Atrial-sensed ventricular-paced rhythm Abnormal ECG No previous ECGs available Confirmed by MICHELLE MESSINA MD ([id number]) on 02/15/2023 7:23:59 PM Electronically Signed By: MICHELLE MESSINA 02/15/231923 PATIENT NAME: BREANA HURLEY Electrocardiogram DATE OF : 43 PHYSICIAN: MICHELLE MESSINA REPORT #: [id number] REPORT IS CONFIDENTIAL AND NOT TO BE RELEASED WITHOUT AUTHORIZATION
== END 2023-02-15 15:20 | disposition home or self-care (01) ==
LOC: ED 11:55
PROVIDERS: Emergency Medicine
DX: R50.9 Fever, unspecified (principal); R11.2 Nausea with vomiting, unspecified; E11.621 Type 2 diabetes mellitus with foot ulcer; L97.529 Non-pressure chronic ulcer of other part of left foot with unspecified severity; I10 Essential (primary) hypertension; Z79.01 Long term (current) use of anticoagulants; Z79.4 Long term (current) use of insulin; Z79.84 Long term (current) use of oral hypoglycemic drugs; Z79.899 Other long term (current) drug therapy; Z20.822 Contact with and (suspected) exposure to COVID-19
CPT/HCPCS: 36415; 71045; 73660; 80053; 81001; 83605; 85025; 87502; 93005; 93010; 96374; 96375; 99284-25; J0878; J2405; J7040; U0002